=== PATIENT | female | born 1990 | race Caucasian/White ===

== ENCOUNTER 2018-11-12 22:48 | Emergency (ER) | payer SELFPAY ==
[~2018-11-12] VITALS: Ht 167.6 cm; Wt 77.1 kg
[~2018-11-12 22:48] MED LIST: PREN-385 PO
[2018-11-12 22:59] VITALS: BP 125/77
--- NOTE | 2018-11-12 23:58 | NUR ---
PT TAKEN TO BED 3
[2018-11-13] MEDS ORDERED: HYDROcodone/APAP 5/325 MG 1 TAB TAB PO ONE (01:00)
--- NOTE | 2018-11-13 01:10 | NUR ---
27 Y/O FEMALE C/O RIGHT SIDE TOOTH PAIN. 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 DOES NOT RADIATE. PT TAKES NAPROXEN FOR PAIN BUT INEFFECTIVE. PT VSS. ERMD AWARE. WILL CONTINUE TO MONITOR.
[2018-11-13 01:40] VITALS: BP 121/71
--- NOTE | 2018-11-13 01:42 | NUR ---
PT DISCHARGED WITH PAPERWORK. RX PCN, GIULIANO. EDUCATED PT REGARDING MEDICATIONS AND S/E. EDCUATED PT REGARDING D/C DIAGNOSIS AND INSTRUCTIONS. PT VERBALIZED UNDERSTANDING OF TEACHING. TOLD PT TO FOLLOW UP WITH PCP AND WHEN TO RETURN TO ED. PT VSS. ALL QUESTIONS ANSWERED.
== END 2018-11-13 01:42 | disposition home or self-care (01) ==
LOC: MED 22:48
DX: K04.7 Periapical abscess without sinus (principal); Z79.899 Other long term (current) drug therapy
CPT/HCPCS: 99283

== ENCOUNTER 2022-02-04 00:47 | Observation (INO) | payer BC ==
[~2022-02-04] VITALS: Ht 162.6 cm; Wt 88.9 kg
[2022-02-04 01:16] VITALS: BP 118/61
== END 2022-02-04 02:35 | disposition home or self-care (01) ==
LOC: MLD 00:47
PROVIDERS: ADMIT Obstetrics & Gynecology; ATTEND Obstetrics & Gynecology
DX: O42.912 Preterm premature rupture of membranes, unspecified as to length of time between rupture and onset of labor, second trimester (principal); Z20.822 Contact with and (suspected) exposure to COVID-19; Z3A.25 25 weeks gestation of pregnancy
CPT/HCPCS: 76815; 87426; G0378; G0379; Q0092; 59025; 81000